=== PATIENT | male | born 1995 | race Caucasian/White ===

== ENCOUNTER → 2020-09-09 14:49 | Outpatient (CLI) | payer OTHER, SELFPAY ==
[2020-09-09 16:29] LABS: COVID19 -Nasal RAPID Negative (Negative)
== END ==
PROVIDERS: PCP Family Medicine; Visit Provider Physician Assistant
DX: Z11.59 Encounter for screening for other viral diseases (principal)
CPT/HCPCS: 87635

== ENCOUNTER 2020-09-12 06:38 | Day surgery (SDC) | payer OTHER, SELFPAY ==
[2020-09-11 10:55] VITALS: BMI 36.3
--- NOTE | 2020-09-12 | DI.RAD.S_ITS ---
PROCEDURE: XR LUMBAR SPINE 2-3V INDICATIONS: L4-5 DISCECTOMY TECHNIQUE: 3 views of the lumbar spine were acquired. COMPARISON: None. FINDINGS: Spot fluoroscopic images demonstrating posterior paraspinal soft tissues seen at the level of L4-L5 Dictated by: Star Rodgers M.D. on 09/13/2020 at 9:32 Approved by: Star Rodgers M.D. on 09/13/2020 at 9:35
--- NOTE | 2020-09-12 07:21 | PM.PREOP ---
Pre-operative Note COVID-19 COVID-19 status: Negative Result date/Date tested (Pos, Neg/Pending): 09/09/20 Interval Note History & Physical reviewed/Exam performed by Physician: Yes Changes to H&P: No
[2020-09-12] MEDS: LACTATED RINGERS 1,000 ML 42 ML IV ×2 (07:23→08:49)
[2020-09-12 07:24] VITALS: BP 145/94; PULSE 101; RESP 16; TEMP 36.8; O2SAT 100; BMI 37.0
--- NOTE | 2020-09-12 07:24 | PM.OP.1 ---
Operative Date/Time/Diagnoses Date of procedure: 09/12/20 Time of procedure: 09:28 Pre-op diagnosis: Lumbar disc herniation with radiculopathy Post-op diagnosis: same Procedure & Clinicians Procedure: Left L4-5 diskectomy Use of microscope Placement of epidural catheter Same procedure as scheduled: Yes Indications: [age] year old male with intractable pain from a lumbar disc herniation. They had failed conservative management and requested operative intervention. Risks and benefits of surgery were discussed and appropriate consents were obtained. Surgeon: Ben Gurrola Wafer Line Worker: Sonia Hoover Anesthesia Type: General Operative Notes Findings: None Closure Type: primary Specimen(s): none sent Estimated Blood Loss (mL): 10 Procedure in detail: Patient was brought to the operating room and intubated on the table. A time-out was performed. There were rolled over the well-padded prone position on the Owen table. The back was prepped and draped in standard sterile fashion. Preoperative antibiotics were given. Using fluoroscopy, a 3 cm incision was made to the well marked left of the midline at the L4-5 level. We used Bovie to come down to and split the fascia. We then used the [employer] MaXcess dilators with fluoroscopy and then opened our retractors. The soft tissue was cleared off with Bovie, a marker was placed, an x-ray was taken to confirm positioning. We then brought in the microscope. A combination of high-speed bur and Kerrison were used to perform a left-sided hemilaminotomy and hemifacetectomy. He had a very short interlaminar distance and we had to undermine the spinous process to be able to get medial enough for any retraction. This greatly decompress the whole central canal. We carefully retracted the dura and exposed the disc, which was extremely large and broad based. This was cleared with bipolar. A scalpel used to perform an annulotomy and a pituitary was used to perform the diskectomy. Once this was partially decompressed and the dura was more mobile, we retracted the dura further medially and remove more of the disc tissue until this appeared well decompressed, going several mm deep inside the disc. The ball probe was swept underneath the dura to make sure that there was no further protrusion up against the undersurface of the dura. The ball probe was also placed into the disc and moved around to make sure there were no further loose fragments. Once everything was adequately decompressed, the wound was copiously irrigated. An epidural catheter was filled with 100 mcg of fentanyl and 8 mL of 0.25% Marcaine. The dura was carefully depressed under the laminotomy site and the catheter was advanced 6 cm cephalad. The retractor was removed and the fascia was closed. The epidural catheter was then injected without resistance and removed. Vancomycin powder was placed in the wound. Superficial and skin were closed. Sterile dressing was placed. The patient was then rolled over, transferred to the stretcher, and brought to recovery room without complications. Complications: none Post-operative Condition: stable Disposition: PACU Plan for aftercare: Outpatient. Limited bending and twisting and lifting for the 1st 2 weeks and then may start PT as tolerated.
[2020-09-12] MEDS: CEFAZOLIN 2 GM/100 ML FROZ.PIGGY IV (07:46)
--- NOTE | 2020-09-12 08:30 | SUR.OPER ---
Prone on spine table, head in foam head support, padded chest and pelvic supports, gel pad at knees, lower legs supported by pillows; nipples, genitalia and toes free of pressure, arms secured on foam padded arm boards at <90 degrees abduction. Tape over blanket at thigh secured to table.
[2020-09-12] MEDS: THROMBIN (RECOMBINANT) 5,000 UNIT VIAL 5000 UNIT TOP (08:34)
[2020-09-12] MEDS: SODIUM CHLORIDE 0.9% 1,000 ML, GENTAMICIN 80 MG IRR (08:35)
[2020-09-12] MEDS: BUPIVACAINE 0.25% (PF) 8 ML, fentaNYL 100 MCG INJ (08:35)
[2020-09-12 09:48] VITALS: BP 136/80; PULSE 98; RESP 14; TEMP 36.3; O2SAT 100
[2020-09-12 09:53] VITALS: BP 137/80; PULSE 92; RESP 16; O2SAT 99
[2020-09-12] MEDS: OXYCODONE/ACETAMINOPHEN 5/325 TABLET 1 TAB PO (09:57)
[2020-09-12 09:59] VITALS: BP 128/89; PULSE 99; RESP 14; O2SAT 98
[2020-09-12 10:03] VITALS: BP 131/95; PULSE 97; RESP 14; TEMP 36.6; O2SAT 99
[2020-09-12 10:07] VITALS: BP 141/86; PULSE 88; RESP 12; O2SAT 99
[2020-09-12] MEDS: ONDANSETRON 4 MG/2 ML INJ IV (10:25)
== END 2020-09-12 10:43 | disposition home or self-care (01) ==
PROVIDERS: PCP Family Medicine; Referring Provider Orthopaedic Surgery; Visit Provider Orthopaedic Surgery
PROC: (CPT 63030; principal; 2020-09-12 07:45)
DX: M51.16 Intervertebral disc disorders with radiculopathy, lumbar region (principal); F17.210 Nicotine dependence, cigarettes, uncomplicated; E66.9 Obesity, unspecified
CPT/HCPCS: 63030; 72100; 76000; 82962; J0330; J0690; J1100; J1170; J2405; J2704; J3010